=== PATIENT | male | born 1970 | race Caucasian/White ===

== ENCOUNTER 2016-08-07 17:21 | Emergency (ER) | payer OTHER ==
[~2016-08-07] VITALS: Ht 185.4 cm; Wt 100.0 kg
[~2016-08-07 17:21] MED LIST: ACET500C PO; LOVA40TA PO; MEDR4PAK PO; RANI150C PO
[2016-08-07 17:24] VITALS: BP 181/110; PULSE 97; RESP 16; TEMP 98.3; O2SAT 98
[2016-08-07] MEDS ORDERED: IBUP800T23 PO (17:56)
--- NOTE | 2016-08-07 17:57 | PD ---
HPI Chief Complaint: Laceration/Skin Injury Time Seen by Provider: 17:54 Travel History International Travel<30 days: No Contact w/Intl Traveler<30days: No Traveled to known affect area: No History of Present Illness HPI 45-year-old male presents to the emergency department with complaint of a laceration to the tip of his right index finger obtained from a concrete roll grinder that fell apart. Reports seeing up-to-date on his tetanus vaccination. Denies paresthesias, loss of sensation, decreased range of motion, decreased strength to the affected finger. Denies fever, chills, nausea, vomiting. Has not taken any medications or tried any treatments today his symptoms. Has applied pressure to control bleeding. History of hypertension but does not take medications. Denies chest pain, shortness of breath, nausea, vomiting, headache, change in vision, diaphoresis, palpitations, confusion. Allergies to steroids and Ultram. No other modifying factors or associated signs and symptoms. PFSH Past Medical History Hypertension: Yes Past Surgical History Other Surgery: Yes (RIGHT TOE AND LEFT TOE ) Social History Alcohol Use: No Tobacco Use: Yes (1/2 pack a day ) Substance Use: No (marijuina ) Allergies-Medications (Allergen,Severity, Reaction): Coded Allergies: Ultram (Verified Allergy, Intermediate, Rash, 08/07/16) Uncoded Allergies: STEROID (Adverse Reaction, Severe, IRRITABILITY, 08/07/16) Reported Meds & Prescriptions Reported Meds & Active Scripts Active Ibuprofen 800 Mg Tab 800 Mg PO Q6HR PRN Medrol Dosepak (Methylprednisolone) 4 Mg Dspk 4 Mg PO DIRECTED Per Pharmacist direction Ranitidine (Ranitidine HCl) 150 Mg Cap 150 Mg PO BID Lovastatin 40 Mg Tab 40 Mg PO DAILY Reported Acetaminophen 500 Mg Cap 500 Mg PO Q4-6H PRN Review of Systems Except as stated in HPI: all other systems reviewed are Neg Physical Exam Narrative GENERAL: Well-nourished, well-developed male patient, in no acute distress SKIN: Warm and dry. Distal aspect of right index finger with superficial laceration that measures approximately 1 cm; without erythema, edema, drainage; finger with full range of motion and sensory intact; with good opposition. HEAD: Atraumatic. Normocephalic. EYES: Pupils equal and round. No scleral icterus. No injection or drainage. ENT: Mucosa pink and moist. Airway patent. NECK: Trachea midline. CARDIOVASCULAR: Regular rate. RESPIRATORY: No accessory muscle use. GASTROINTESTINAL: Rounded. MUSCULOSKELETAL: No obvious deformities. No clubbing. No cyanosis. No edema. NEUROLOGICAL: Awake and alert. Oriented 3. No obvious cranial nerve deficits. Motor grossly within normal limits. Normal speech. PSYCHIATRIC: Appropriate mood and affect; insight and judgment normal. Data Data Last Documented VS Vital Signs Date Time Temp Pulse Resp B/P Pulse Ox O2 Delivery O2 Flow Rate FiO2 08/07/16 18:25 168/99 08/07/16 17:24 98.3 97 16 98 MDM Medical Decision Making Medical Screen Exam Complete: Yes Emergency Medical Condition: Yes Medical Record Reviewed: Yes Differential Diagnosis Laceration, contusion, abrasion Narrative Course 45-year-old male with a very superficial laceration to the distal aspect of the right index finger that does not require stitching or Dermabond. Right fingers with full range of motion, sensory intact, good opposition; and without erythema , edema, drainage. Finger soaked in normal saline. Polysporin and Band-Aid applied. Patient has history of hypertension and does not take medications. He denies symptoms of hypertension. Pressure recheck prior to discharge 168/ 99. Ibuprofen prescribed for home. Patient is medically cleared and stable for discharge. Discussed reasons to return to the emergency department. Instructed patient to follow up with primary care provider. Patient agrees with treatment plan. The patients vital signs are stable and the patient is stable for outpatient follow-up and treatment. Patient discharged home, stable and in no acute distress. Diagnosis Primary Impression: Laceration of right index finger Referrals: Primary Care Physician Patient Instructions: Acute Wound Care (ED), General Instructions Departure Forms: Tests/Procedures, Work Release Enter return to work date: Aug 08, 2016 Additional Instructions: Keep area clean and dry Ibuprofen or Tylenol as directed and as needed for pain and inflammation Ice pack to area as needed to decrease pain Follow up with her primary care provider Return to the emergency department immediately with worsening of symptoms Med/Other Pt SpecificInfo: Prescription(s) given Scripts Ibuprofen 800 Mg [id number] Mg PO Q6HR PRN (PAIN) #30 TAB Ref 0 Prov:Patti Fernandes 08/07/16 Disposition: 01 DISCHARGE HOME Condition: Stable Patti Fernandes Aug 07, 2016 17:57
[2016-08-07 18:25] VITALS: BP 168/99
[2016-09-18] MEDS ORDERED: RANI150C PO (13:17)
[2016-11-09] MEDS ORDERED: LOVA40TA PO (10:10)
[2016-11-12] MEDS ORDERED: RANI150C PO (15:37)
== END 2016-08-07 18:28 | disposition home or self-care (01) ==
LOC: NEPB 17:21
DX: S61.210A Laceration without foreign body of right index finger without damage to nail, initial encounter (principal); I10 Essential (primary) hypertension; F17.210 Nicotine dependence, cigarettes, uncomplicated; W31.89XA Contact with other specified machinery, initial encounter; Y99.0 Civilian activity done for income or pay
CPT/HCPCS: 99282